=== PATIENT | female | born 1955 | race Caucasian/White ===

== ENCOUNTER → 2018-11-20 | Outpatient (CLI) | payer BC ==
--- NOTE | 2018-11-20 20:34 | CT ---
EXAMINATION TYPE: CT abdomen pelvis w con DATE OF EXAM: 11/20/2018 COMPARISON: NONE HISTORY: 63-year-old female abnormal findings on MRI scan TECHNIQUE: Contiguous axial scanning of the abdomen and pelvis following administration of 100 ml Iso joan 300 IV contrast. Delayed images through the kidneys and coronal/sagittal reconstructions perform ed. CT DLP: 1092 mGycm Automated exposure control for dose reduction was used. FINDINGS: Heart normal size without pericardial effusion. Lung bases clear without pleural effusion. Prominent lower paraesophageal lymph node measures 9 mm, probably reactive/post inflammatory. No focal liver lesion or biliary ductal dilatation. Portal venous system is patent. Gallbladder is co llapsed. Adrenal glands kidneys with extrarenal pelves and pancreas appear within normal limits calci fied granuloma in the spleen. No dilated small bowel, free fluid, or free air. No mesenteric or retroperitoneal lymphadenopathy. Normal appendix. There is moderate stool burden and mild sigmoid diverticulosis. No pericolonic infla mmatory change. Extensive pelvic phleboliths. Uterus surgically absent. Neither ovary is clearly visualized. No abnor mal fluid collection in the pelvis or pelvic lymphadenopathy seen. Facet arthropathy with grade 1 retrolisthesis at L3-L4 and L4-L5. The posterior aspect of the S1 vert ebral body is slightly hypoplastic. No osseous destructive process. IMPRESSION: 1. PROMINENT 9 MM LOWER PARAESOPHAGEAL LYMPH NODE MAY BE REACTIVE/POST INFLAMMATORY. 3 MONTH FOLLOW-U P CT CHEST RECOMMENDED TO ENSURE STABILITY/RESOLUTION. 2. SIGMOID DIVERTICULOSIS WITHOUT ACUTE DIVERTICULITIS. 3. OTHERWISE, NO SPECIFIC ABNORMALITY SEEN. CORRELATION WILL BE NEEDED TO THE ABNORMALITY SEEN ON PATIENT'S OUTSIDE MRI. THE EXAM CAN BE REVIEWED WITH DIRECTED ATTENTION TO THE PARTICULAR SITE OF INT EREST IF INDICATED.
== END | disposition home or self-care (01) ==
LOC: RADCTMAIN 15:33
PROVIDERS: ATTEND Family Medicine
DX: K57.30 Diverticulosis of large intestine without perforation or abscess without bleeding (principal)
CPT/HCPCS: 74177; Q9967

== ENCOUNTER → 2019-04-02 | Outpatient (CLI) | payer BC ==
--- NOTE | 2019-04-02 20:04 | CT ---
EXAMINATION TYPE: CT sinus wo con DATE OF EXAM: 04/02/2019 COMPARISON: 01/25/[address] HISTORY: Chronic sinusitis CT DLP: 648.7 mGycm. Automated Exposure Control for Dose Reduction was Utilized. TECHNIQUE: CT scan of the sinuses is performed without contrast, axial images are obtained, coronal r eformatted images are also reviewed. FINDINGS: The paranasal sinuses are well aerated without mucosal thickening seen at this time. There is very mi ld inferior nasal turbinate mucosal hypertrophy bilaterally. The ostia medial complexes are patent. T here is a nonobstructive left 5 mm Herbie cell. The nasal septum is overall midline. No micah bullos a. Frontal recesses are patent. The orbits are symmetric. Left-sided dental filling is incidentally n oted. Exam is not optimized for evaluation of intracranial structures. IMPRESSION: 1. The paranasal sinuses are clear at this time and the ostiomeatal complex is patent bilaterally. 2. Nonocclusive 5 mm left Herbie cell. 3. Mild bilateral inferior nasal turbinate mucosal hypertrophy.
== END | disposition home or self-care (01) ==
LOC: RADCTMAIN 16:02
PROVIDERS: ATTEND Otolaryngology
DX: J34.3 Hypertrophy of nasal turbinates (principal); J32.9 Chronic sinusitis, unspecified
CPT/HCPCS: 70486

== ENCOUNTER → 2020-07-05 | Outpatient (CLI) | payer BC ==
--- NOTE | 2020-07-05 23:32 | CONS ---
CONSULTATION REASON FOR CONSULTATION: Chronic fatigue and headaches. A 65-year-old female patient has been battling headaches for years. She has been having this for a long period of time and she has been followed up by Neurology, Dr. Gao and currently she is on Emagalti shots once a month. Despite all this, she is still having morning headaches and she is wondering if there is any underlying sleep breathing disorder or nocturnal oxygen desaturation contributing to this. For that reason, the patient was referred to me. She snores. She has excessive fatigue and sleepiness during the day. She grinds and she is wearing a mouth guard for now. She is a mouth breather and she wakes up with a dry mouth. She is waking up tired during the day. She goes to bed around 10:30 p.m., wakes up 7 o'clock in the morning. She is averaging around 8 to 9 hours of sleep. She wakes up a few times in the middle of the night around 3 to 4 times. No sleep paralysis. No hallucinations. No cataplexy. No restlessness in lower extremities. No witnessed apneas. PAST MEDICAL HISTORY: Chronic headaches, hypothyroidism, asthma, hyperlipidemia. PAST SURGICAL HISTORY: Includes hysterectomy and surgical repair of a deviated septum. DRUG ALLERGIES: LATEX. OUTPATIENT MEDICATIONS: Advair 100/50 twice a day, Lipitor 20 mg p.o. q. day, Synthroid 75 mcg p.o. q. day, Celexa 10 q. day, Singulair 10 q. day, Zyrtec 10 q. day. SOCIAL HISTORY: The patient is a nonsmoker. No history of alcoholism. No history of IV drugs. FAMILY HISTORY: Negative for sleep apnea. Both parents had hypertension. Mother had congestive heart failure. Both are . REVIEW OF SYSTEMS: Fourteen-point review of system was done and the positive findings are mentioned in history of present illness. No focal neurological deficits. No seizure activity. No heartburn. No palpitation. No anxiety. No depression. No claustrophobia. No restlessness of the lower extremities. PHYSICAL EXAMINATION: VITAL SIGNS: BP is 118/74, pulse 73, respirations 16, temperature 98, saturation 99% on room air. Height is 5 feet 6 inches, weight is 170, and neck size is 14 inches. BMI 27.0. GENERAL APPEARANCE: Calm, comfortable. HEAD: Atraumatic, normocephalic. NECK: Supple. There is no JVD. There is no goiter or neck masses. LUNGS: Clear to auscultation. HEART: Heart sounds are regular rate and rhythm. Normal S1, S2. No S3, S4. No murmurs. ABDOMEN: Soft, nontender. No organomegaly. EXTREMITIES: No edema. No cyanosis or clubbing. NEUROLOGIC: Awake and alert. There is no focal neurological deficit. IMPRESSION: 1. Chronic fatigue under investigation. 2. Chronic headaches. Rule out underlying sleep breathing disorder/nocturnal oxygen desaturation contributing to her chronic headaches. 3. Hypothyroidism. 4. Hyperlipidemia. 5. Bronchial asthma. PLAN: We will proceed with a home sleep study. This will be needed to rule out any sleep breathing disorder or any nocturnal oxygen desaturation that contribute to the patient's chronic fatigue and chronic headache. My overall suspicion is low. We will investigate this patient further. Continue same medications. Implement good sleep hygiene measures. We will contact the patient back if there is any abnormalities in the home sleep study. MMODL / IJN: [id number] /
== END | disposition home or self-care (01) ==
LOC: SLEEP 14:27
PROVIDERS: ATTEND Internal Medicine Critical Care Medicine
DX: R51 Headache (principal); G89.29 Other chronic pain; E03.9 Hypothyroidism, unspecified; E78.5 Hyperlipidemia, unspecified; J45.909 Unspecified asthma, uncomplicated; R53.83 Other fatigue
CPT/HCPCS: 99211

== ENCOUNTER → 2021-05-23 | Outpatient (CLI) | payer BC ==
--- NOTE | 2021-05-23 15:17 | PN ---
PROGRESS NOTE This patient is 66 with obstructive sleep apnea. She is coming in for a followup. She underwent a home sleep study back in July of 2020. Back then she was having chronic fatigue and chronic headaches. Her home sleep study showed an AHI of 16.9, slightly worse in the supine body position. The patient was offered an APAP pressure minimum of 5, maximum of 15. On today's evaluation, she reported that her headaches are still present. She has been started on a new shot called AIM shot, which is helping her with her headache and she is taking rizatriptan for breakthrough headaches. She remains compliant with her CPAP machine. She is using the machine at the pressure of minimum of 5 and a maximum of 15. She has an AirFit F20 full-face mask. Fatigue is still present. Noted improvement in terms of her tiredness and sleepiness. Holbrook score is currently at 8. Based on the compliance data, the patient utilized her machine every night over the past 30 days. She has achieved more than 4 hours 70% of the time. Averaging around 4.7 hours of CPAP use. Average pressure delivered by the machine is 9.4. Leak is 49 L/minute and her AHI is down to 1.2. As such, the patient has been compliant using her machine and she reports slight improvement. Based on all this, the patient is not absolutely sure whether she wants to continue with the treatment for the time being. Otherwise no other new complaints for now. REVIEW OF SYSTEMS: Fourteen-point review of system was done positive findings were all mentioned in history of present illness. MEDICATION: Includes Advair, Lipitor, Celexa, Synthroid, rizatriptan, and AIM shots. PHYSICAL EXAMINATION: BP is 107/75, pulse 78, respirations 16, temperature 98.2, saturation 99% on room air. Height is 5 feet 6 inches, weight is 170. BMI is 27. GENERAL APPEARANCE: Calm, comfortable. Head is atraumatic, normocephalic. NECK: Supple. No JVD. No goiter or neck masses. LUNGS: Diminished, otherwise clear. HEART: Heart sounds are regular rate and rhythm. Normal S1, S2. No S3, S4. No murmurs. ABDOMEN: Soft, nontender, no organomegaly. EXTREMITIES: No edema, no cyanosis or clubbing. IMPRESSION: 1. Obstructive sleep apnea, moderate severe AHI of 16.9. The patient demonstrated successful CPAP therapy over the past 10 months at least. Compliance data reflects her excellent use. 2. Chronic headaches/migraines. 3. Chronic fatigue. Holbrook score is at 8. 4. Hypothyroidism. 5. Hyperlipidemia. 6. Bronchial asthma. PLAN: 1. Continue CPAP therapy at same level of pressures. The patient is on APAP mode, pressure minimum of 5, maximum of 15. 2. Offer the patient an alternative mask at the [facility], under the nose, small size, with a small head gear. 3. I am hoping that switching this patient to a nose piece, she should be able to tolerate the treatment more effectively, sleep better and be more comfortable. Her treatment is essentially successful and the APAP mode has been effectively lowering her AHI down to 1.2. Continue implementing good sleep hygiene measures. See me in a few years' time in followup. ALBA / EVONNE: [id number] /
== END | disposition home or self-care (01) ==
LOC: SLEEP 13:52
PROVIDERS: ATTEND Internal Medicine Critical Care Medicine
DX: G47.33 Obstructive sleep apnea (adult) (pediatric) (principal); R53.82 Chronic fatigue, unspecified; E03.9 Hypothyroidism, unspecified; E78.5 Hyperlipidemia, unspecified; J45.998 Other asthma
CPT/HCPCS: 99202

== ENCOUNTER → 2022-07-25 | Outpatient (CLI) | payer MEDICARE ==
--- NOTE | 2022-07-25 15:52 | CT ---
EXAMINATION TYPE: CT chest w con DATE OF EXAM: 07/25/2022 COMPARISON: None HISTORY: Cough unknown origin. Variant asthma CT DLP: 267.2 mGycm, Automated exposure control for dose reduction was used. CONTRAST: Performed injected with 70cc mL of Isovue 300. TECHNIQUE: Axial images were obtained at 5 mm thick sections. Reconstructed images are reviewed on [employer] computer in the coronal plane. FINDINGS: Portion of the thyroid visualized is normal. No suspicious lung nodules or focal infiltrates are present. Tracheal bronchial tree is visualized ap pears normal. No enlarged mediastinal or hilar adenopathy is evident. The ascending aorta diameter at the level o f the main pulmonary artery is 3.0 cm. The main pulmonary artery diameter at the bifurcation is 2.[address] sections are obtained through the upper abdomen. Abdomen is essentially unremarkable. Sple logan calcification is noted. IMPRESSIONS: 1. No acute pulmonary process.
== END | disposition home or self-care (01) ==
LOC: RADCTMAIN 13:39
PROVIDERS: ATTEND Internal Medicine
DX: J45.991 Cough variant asthma (principal)
CPT/HCPCS: 82565; 84520; 71260; 36415; Q9967

== ENCOUNTER → 2023-09-23 | Outpatient (CLI) | payer MEDICARE ==
[2023-09-23 11:49] LABS: Basophils # (A) 0.1 k/uL (0-0.2); Basophils % (A) 1 %; Eosinophils # (A) 0.1 k/uL (0-0.7); Eosinophils % (A) 2 %; HCT 40.7 % (34.0-46.0); HGB 13.6 gm/dL (11.4-16.0); Lymphocytes # (A) 2.3 k/uL (1.0-4.8); Lymphocytes % (A) 34 %; MCH 30.9 pg (25.0-35.0); MCHC 33.5 g/dL (31.0-37.0); MCV 92.3 fL (80.0-100.0); Mean Platelet Volume 8.1; Monocytes # (A) 0.4 k/uL (0-1.0); Monocytes % (A) 5 %; Neutrophils # (A) 3.8 k/uL (1.3-7.7); Neutrophils % (A) 56 %; Platelet Count 235 k/uL (150-450); RBC 4.41 m/uL (3.80-5.40); RDW 13.8 % (11.5-15.5); WBC 6.8 k/uL (3.8-10.6)
[2023-09-23 12:10] LABS: Total Eosinophil Count 136 #EOS/uL (150-300)
[2023-09-23 15:38] LABS: Erythrocyte Sedimentation Rate 23 mm/Hr (0-30)
[2023-09-23 16:07] LABS: Immunoglobulin M 47.5 mg/dL (40.0-280.0)
[2023-09-23 18:06] LABS: Immunoglobulin E 54.2 IU/mL (0.00-114.00)
[2023-09-23 20:24] LABS: Alternaria alternata IgE <0.10 kU/L; Aspergillus fumagatus IgE <0.10 kU/L; Birch IgE <0.10 kU/L; Cat Epith & Dander IgE <0.10 kU/L; Cladosporian herbarum IgE <0.10 kU/L; Cockroach IgE <0.10 kU/L; Dermato. farinae IgE <0.10 kU/L; Dog Dander IgE <0.10 kU/L; Elm IgE <0.10 kU/L; Maple (Box Elder) IgE <0.10 kU/L; Oak IgE <0.10 kU/L; Ragweed,Common IgE <0.10 kU/L; Red Top (Bentgrass) IgE <0.10 kU/L
== END | disposition home or self-care (01) ==
LOC: LABWHC1 10:52
PROVIDERS: ATTEND Internal Medicine
DX: J45.909 Unspecified asthma, uncomplicated (principal); R05.3 Chronic cough
CPT/HCPCS: 36415; 82784; 82785; 85008; 85025; 85652; 86003

== ENCOUNTER 2023-09-25 13:21 | Day surgery (SDC) | payer MEDICARE ==
[2023-09-23 10:03] VITALS: BMI 27.7
[~2023-09-25 13:21] MED LIST: LACTATED RINGERS 1,000 ML IV SCH
[2023-09-25] MEDS ORDERED: LIDOCAINE 1% (10MG/ML) FOR IV START INTRADERMA PRN (13:30)
[2023-09-25] MEDS ORDERED: LACTATED RINGERS 1,000 ML IV SCH (13:30)
[2023-09-25] MEDS ORDERED: GLYCOPYRROLATE 0.2 MG/ML 2 ML VIAL ONE (14:05)
[2023-09-25] MEDS ORDERED: LIDOCAINE 1% INJ 10MG/ML (20 ML MDV) ONE (14:05)
[2023-09-25] MEDS ORDERED: PROPOFOL 10 MG/ML 20 ML VIAL IV ONE (14:05)
[2023-09-25 14:16] VITALS: TEMP 97
[2023-09-25] MEDS ORDERED: LIDOCAINE 2% (PF) 20 MG/ML 2 ML AMP INHALATION ONE (14:30)
[2023-09-25 14:45] VITALS: RESP 18
[2023-09-25 15:14] VITALS: BP 107/70; PULSE 78
--- NOTE | 2023-09-25 20:52 | OP ---
OPERATIVE REPORT DATE OF SERVICE : PROCEDURES PERFORMED: Bronchoscopy and bronchial washing. PREOPERATIVE DIAGNOSIS: Chronic cough. POSTOPERATIVE DIAGNOSIS: Tracheomalacia. ANESTHESIA USED: IV conscious sedation. DESCRIPTION OF PROCEDURE: The patient was prepared according to the bronchoscopy protocol. She was brought into the bronchoscopy suite, O2 was applied via Ventimask. We monitored the O2 saturation continuously, blood pressure was intermittently monitored, and cardiac rhythm was continuously monitored. After adequate IV conscious sedation, a few mL of lidocaine were instilled into the left naris, the bronchoscope was advanced through the left naris down to the area of the vocal cords. Examination of the vocal cords was basically unremarkable. No evidence of any pathology noted on the vocal cords. Lidocaine was applied over the vocal cords and the bronchoscope was advanced further down to the trachea. As I was examining the trachea, there was clearly evidence of tracheomalacia with the trachea collapsing, especially when the patient is coughing or exhaling. There was significant collapse of the tracheal wall noted. Then, as we went down further, we did a thorough examination of the right upper lobe, right middle lobe, right lower lobe, left upper lobe lingula, and left lower lobe. There was some purulent secretions noted in the left mainstem bronchus and in the left lower lobe. Random washing and suctioning of secretions were done from the airways including the left mainstem, left lower lobe, left upper lobe, and lingula and to some extent, some secretions were also suctioned from the right upper lobe, right middle lobe, and right lower lobe. The procedure was well tolerated, no complications noted, fluid obtained was sent for different diagnostic studies. MMODL / IJN: [id number] /
[2023-09-26 04:19] LABS: Appearance,BF Cloudy (Clear); RBC, Body Fluid 850 /UL (0-2000)
[2023-09-30 10:04] LABS: Nucleated Cells, Body Fluid 350 /UL
== END 2023-09-25 15:11 | disposition home or self-care (01) ==
LOC: ORWHC2ENDO 13:21
PROVIDERS: ATTEND Internal Medicine
DX: J39.8 Other specified diseases of upper respiratory tract (principal); J45.909 Unspecified asthma, uncomplicated; E07.9 Disorder of thyroid, unspecified; R05.3 Chronic cough; F41.9 Anxiety disorder, unspecified; Z79.51 Long term (current) use of inhaled steroids; Z79.2 Long term (current) use of antibiotics; Z79.899 Other long term (current) drug therapy; Z79.890 Hormone replacement therapy; Z91.040 Latex allergy status; Z91.048 Other nonmedicinal substance allergy status; Z98.890 Other specified postprocedural states; Z90.710 Acquired absence of both cervix and uterus
CPT/HCPCS: 89050; 87070; 87205; 87116; 87102; 87206; 31624; J2001 ×2; J2704

== ENCOUNTER → 2024-06-26 | Outpatient (CLI) | payer MEDICARE ==
--- NOTE | 2024-07-14 13:18 | MR ---
Site ID synapse default Patient Carmen Shah ID [id number] Age/Gender: 69Y, F Order # N/A Procedure MR IAC wo/w con Date 06/26/2024 1:36:46 PM EXAMINATION TYPE: MR iac wo/w con DATE OF EXAM: 06/26/2024 COMPARISON: None, please note PACS Production downtime occurred during the radiologist interpretation of these images with limited priors/reports. HISTORY: Left-sided hearing loss TECHNIQUE: Multiplanar, multisequence images of the brain and brainstem is performed without and with IV contras t, utilizing 8 mL intravenous Gadavist . Specialized thin sequences were obtained through the interna l auditory canals. FINDINGS: The noguera-white junctions, ventricular system, basal cisterns appear unremarkable. Diffusi on-weighted imaging shows no evidence of restricted diffusion. Patchy areas of high T2/FLAIR signal intensity are seen within the bilateral subcortical white matter. Largest lesion measures up to 7 mm. Approximately 15 lesions. No abnormality demonstrated on susceptibility weighted imaging to suggest microhemorrhage. Developmental venous anomaly demonstrated within the left cerebral hemisphere. After administration of gadolinium, no abnormal enhancement is seen. The internal auditory canal sequences demonstrate a right AICA type I vascular loop with the aid, lyi ng only in the CPA benign entering the internal auditory canal. There is a left AICA type II vascula r loop with AICA entering but not extending greater than 50% of the length of the IAC. The 7th crania l nerves, 8 cranial nerves, and cerebellar pontine angles are otherwise unremarkable. Trace increased T2 signal within the left mastoid air cells. After the administration gadolinium, no abnormal enhanc ement is seen within the internal auditory canals. IMPRESSION: 1. No evidence of intracranial mass nor acute/subacute CVA. 2. No evidence of internal auditory canal enhancing mass. 3. 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 4. Trace left mastoid effusion.
== END | disposition home or self-care (01) ==
LOC: RADMRIMAIN 02:18
PROVIDERS: ATTEND Otolaryngology
DX: H90.42 Sensorineural hearing loss, unilateral, left ear, with unrestricted hearing on the contralateral side (principal); H93.12 Tinnitus, left ear; R42 Dizziness and giddiness
CPT/HCPCS: 70553; A9585